=== PATIENT | female | born 1995 | race Caucasian/White ===

== ENCOUNTER → 2022-03-05 13:08 | Outpatient (CLI) | payer OTHER, SELFPAY ==
--- NOTE | ~2022-03-05 | MR_ITS ---
EXAMINATION: MR hip RT w con DATE: 03/05/2022 14:47 INDICATION: Right hip pain TECHNIQUE: Magnetic resonance (MR) arthrogram of the right hip was performed following intra-articula r gadolinium contrast injection and without intravenous contrast. Details of the hip joint injection have been dictated separately. Sequences included small field of view of the right hip with axial and sagittal T1-weighted FS SE and T2-weighted FS FSE and coronal T1-weighted SE and T2-weighted FS FSE . Additional T1-weighted FGRE images in a radial pattern oriented orthogonal to the acetabular rim we re obtained for evaluation of the labrum. COMPARISON: None. FINDINGS: Bones/labrum/cartilage: Alignment is normal. No fracture, avascular necrosis or pathologic marrow replacing process. Right a cetabular labrum is normal. Articular cartilage is normal. Fluid: Physiologic amount fluid in the left hip joint space. Small amount of likely physiologic free fluid i n the pelvis. No bursitis, abscess or other abnormal fluid collections. Soft tissues: Normal and symmetric muscle bulk and signal in the pelvis and visualized proximal thighs. The bilater al iliopsoas, gluteal and proximal hamstring tendons are normal. Tampon within the vaginal vault. Denis ited evaluation of visceral organs of the pelvis is unremarkable. No pathologically enlarged pelvic/ inguinal lymphadenopathy. IMPRESSION: 1. Normal right hip MRI arthrogram. Reviewed, dictated and finalized at location A.
--- NOTE | ~2022-03-05 | XR_ITS ---
EXAMINATION: XR fl inj hip RT for MR/CT DATE: 03/05/2022 14:01 INDICATION: Right hip pain. TECHNIQUE: A time-out was performed to verify the patient's name, date of , and procedure to b e performed. The procedure including the risks, benefits, and alternatives was discussed with the pat ient. Risks discussed included bleeding and infection. The patient understood the risks and agreed to proceed. The skin overlying the right hip joint was prepped and draped in usual sterile fashion. An esthetic was administered with 1% lidocaine subcutaneously. A 22 G needle was advanced under fluoros copic guidance into the joint. Subsequently, injectate consisting of 9 mL of 1:200 Multihance, 1:4 1 % lidocaine, and 1:4 Omnipaque 240 was instilled. The needle was removed and the entry site was checo halle and dressed. There were no immediate complications. Fluoroscopy exposure time was 0.0 minutes. T he total number of images was 3. FINDINGS: Real-time fluoroscopy demonstrates the needle and contrast in the right hip joint. IMPRESSION: 1. Successful right hip joint injection of contrast for subsequent MR arthrography. Reviewed, dictated and finalized at location B. IMPRESSION: 1. Successful right hip joint injection of contrast for subsequent MR arthrogr aphy.
== END ==
PROVIDERS: PCP Family Medicine; Visit Provider Orthopaedic Surgery
DX: M25.551 Pain in right hip (principal)
CPT/HCPCS: 20610; 73722; 77002; A9577; Q9966

== ENCOUNTER 2024-03-09 13:40 | Outpatient (CLI) | payer BC, SELFPAY ==
--- NOTE | ~2024-03-09 | CT_ITS ---
EXAMINATION: CT abdomen pelvis w con DATE: 03/09/2024 14:01 INDICATION: Left inguinal pain. TECHNIQUE: Computed tomography (CT) of the abdomen and pelvis was performed with 100 mL Omnipaque 350 intravenous contrast. Automated exposure control and iterative reconstruction technique were employe d. The dose-length product was 393.44 mGy-cm. COMPARISON: None. FINDINGS: The visualized portions of the lung bases are clear without pneumonia or pleural effusion. The heart size is normal. No pericardial effusion. The liver, gallbladder, spleen, pancreas, adrenal glands, and kidneys are normal. There are no dilated loops of bowel. The appendix is not visualized. There is physiologic fluid in the pelvis. There are no pathologically enlarged lymph nodes. There is mild lumbar spondylosis. IMPRESSION: 1. No etiology for the patient's symptoms. Reviewed, dictated and finalized at location A.
== END 2024-03-09 13:41 ==
LOC: MICIMG 13:42
PROVIDERS: PCP Family Medicine; Visit Provider Family Medicine
DX: R10.2 Pelvic and perineal pain (principal)
CPT/HCPCS: 74177; Q9967

== ENCOUNTER 2025-04-21 15:34 | Emergency (ER) | payer OTHER, SELFPAY ==
--- NOTE | ~2025-04-21 | US_ITS ---
EXAMINATION: US OB follow up DATE: 04/21/2025 16:50 INDICATION: Vaginal spotting during 14th week of TECHNIQUE: Real-time ultrasound of the pelvis was performed. The interpreting radiologist was not pre sent for the study. COMPARISON: None. FINDINGS: Of the uterus measures 14.6 x 9.3 x 9.4 cm. There is a single living fetus in variable presentation. The placenta is anterior with caudal margin approximately 2.6 cm from the internal cervical os. Norm al cervical length of 3 cm. There is a hypoechoic region without vascular flow on color Doppler along the inferior margin of the placenta and gestational sac which measures approximately 7 x 6 cm in ext ent and measuring up to 8 mm in maximal thickness where it extends across the internal cervical os day spicious for a subchorionic hematoma. heart rate is 158 beats per minute (bpm). The amniotic fl uid volume is subjectively normal with normal deepest vertical pocket is related to 4.2 cm. The following biometric data were obtained: Caban-rump length: 8.0 cm -> 14 weeks 0 days BPD: 2.7 cm -> 14 weeks 6 days Head circumference: 10.3 cm -> 14 weeks 6 days Abdominal circumference: 8.6 cm -> 14 weeks 6 days Femur length: 1.5 cm -> 14 weeks 4 days These measurements are concordant. Head circumference to abdominal circumference ratio: 1.21 (normal range 1.06-1.38). Estimated weight: 107 g (+/-) 16 g or 4 oz. (+/-) 1 oz. IMPRESSION: 1. Single living fetus in variable presentation with heart rate of 158 bpm. 2. Gestational age by ultrasound of 14 weeks 6 day(s) +/- 1 week(s) 0 day(s) with ultrasound estimate d date of delivery (LEONIE) of 10/14/2025. Estimated weight is 54th percentile by Hadlock criteria when 10/16/25 is used as the LEONIE. Please correlate with clinical information or earlier ultrasounds for most accurate LEONIE. 3. Subchorionic hematoma along the inferior margin of the placenta and gestational sac extending acro ss the internal cervical os. Reviewed, dictated and finalized at location B. IMPRESSION: 1. Single living fetus in variable presentation with heart rate of 158 bp m. 2. Gestational age by ultrasound of 14 weeks 6 day(s) +/- 1 week(s) 0 day(s) wi th ultrasound estimated date of delivery (LEONIE) of 10/14/2025. Estimated w eight is 54th percentile by Hadlock criteria when 10/16/25 is used as the LEONIE. Please correlate with clinical information or earlier ultrasounds for most accu rate LEONIE. 3. Subchorionic hematoma along the inferior margin of the placenta and gestatio nal sac extending across the internal cervical os.
[2025-04-21 15:35] VITALS: BP 123/65; PULSE 97; RESP 16; TEMP 36.8; O2SAT 99
[2025-04-21 16:54] LABS: Basophils Percent Auto 0.2 % (0.2-1.2); Eosinophils Absolute Auto 0.1 K/mm3 (0-0.3); Eosinophils Percent Auto 0.7 % (0-4.4); Hematocrit 39.3 % (37.0-47.0); Hemoglobin 13.5 g/dL (12.0-15.0); Immature Granulocyte Absolute 0.04 K/mm3 (0.00-0.031); Immature Granulocyte Percent A 0.3 % (0-0.5); Lymphocytes Absolute Auto 1.97 K/mm3 (0.9-3.2); Lymphocytes Percent Auto 16.3 % (18.3-44.2); Mean Corpuscular HGB Conc 34.4 g/dl (32-36); Mean Corpuscular Hemoglobin 32.7 pg (26-34); Mean Corpuscular Volume 95.2 fl (80-100); Mean Platelet Volume 9.7 fl (7.4-10.4); Monocytes Absolute Auto 0.7 K/mm3 (0.1-0.6); Monocytes Percent Auto 5.5 % (2.6-8.5); Neutrophils Absolute Auto 9.3 K/mm3 (1.3-6.7); Platelet Count Result 299 k/mm3 (150-375); Red Blood Count 4.13 M/mm3 (4.2-5.4); Red Cell Distribution Width 12.2 % (11.5-14.5); White Blood Count 12.1 K/mm3 (4.5-10.0)
[2025-04-21 17:00] LABS: Add Urine Microscopic? YES; Appearance Urine Clear (Clear); Bacteria Urine None Seen /hpf; Bilirubin Urine Negative (Negative); Blood Urine 1+ (Negative); Color Urine Yellow (Yellow); Glucose Urine UA Negative (Negative); Ketones Urine Negative (Negative); Leukocyte Esterase Ur Negative LEU/UL (Negative); Nitrate Urine Negative (Negative); Non Pathogenic Casts 0-2; Protein Urine Negative (Negative); RBC Urine 0-2 /hpf (0-2); Specific Grav Ur 1.006 (1.001-1.035); Squamous Epithelial Cell Urine None Seen /hpf (Few); Urobilinogen Urine 0.2 mg/dL (<2.0); WBC Urine 0-5 /hpf (0-3)
[2025-04-21 17:04] LABS: Alanine Aminotransferase 26 U/L (6-35); Albumin Level 4.5 g/dL (3.5-5.1); Alkaline Phosphatase 53 U/L (38-126); Anion Gap 11 mmol/L (4-12); Aspartate Amino Transferase 36 U/L (14-36); Bilirubin,Total 0.4 mg/dL (0.2-1.3); Blood Urea Nitrogen 10 mg/dL (7-17); Calcium 9.6 mg/dL (8.4-10.2); Carbon Dioxide 24 mmol/L (22-30); Chloride 101 mmol/L (98-107); Estimated CRCL calculation 99 ml/min; Estimated Glomerular Filt Rate > 60; Glucose 97 mg/dL (65-110); Potassium 3.2 mmol/L (3.4-5.0); Sodium 136 mmol/L (137-145)
[2025-04-21 17:07] LABS: INR 0.9; Prothrombin Time 12.4 Seconds (11.1-14.7)
[2025-04-21 17:08] LABS: Partial Thromboplastin Time 27.5 Seconds (22.3-36.8)
--- NOTE | 2025-04-21 17:10 | ED.PREGNANCY ---
HPI - General Chief complaint: Vaginal Bleeding Stated complaint: 14 weeks , having spotting Time Seen by Provider: 04/21/25 16:24 Source: patient Mode of arrival: ambulatory Limitations: no limitations History of Present Illness HPI Narrative: Patient is a 29-year-old female who presents the ED with report of vaginal spotting. Patient is and currently 14 weeks gestation. Reports this morning she had a small amount of brown vaginal spotting in her underwear. She placed a panty liner throughout the day and did not have any significant further bleeding, but did notice brown spotting with wiping 2 times this afternoon. Patient denies any previous issues with her . Has had confirmed IUP. Reports very mild, 1/10, cramping in her L lower abdomen. Denies dizziness, lightheadedness, nausea, vomiting, dysuria, hematuria. Blood type is A positive. Related Data Home Medications ?Medication ?Instructions ?Recorded ?Confirmed ?Last Taken ?Type No Home Medications 09/08/24 09/08/24 Unknown History Allergies Allergy/AdvReac Type Severity Reaction Status Date / Time Penicillins Allergy Mild Hives Verified 04/21/25 16:47 Review of Systems Review of Systems: All systems reviewed & are unremarkable except as noted in HPI. All systems reviewed & are unremarkable except as noted in HPI and below PMFSH Family History Family History Grandparent Lung cancer Diabetes mellitus Social History Social History Smoking status: Never smoker Alcohol intake: current Alcohol use details: socially Substance use: never Do You Feel Safe in your Home?: Yes Lack of Transportation: No Lack of Food: Never True Current Housing: I Have Housing Concerned About Future Housing: No Difficulty Paying Gas/Electric Bills: No Difficulty Paying for Meds: No Currently Unemployed: No Education: Master's Degree or Higher Difficulty w/ Childcare or Family Care: No Living arrangements: with family Occupation/Education: occupation Additional occupation/education comments: physical therapist Gender identity (if verbalized by the patient): Female Sexual Orientation (if Verbalized by the Patient): Straight or Heterosexual Exam Narrative: GENERAL: Well appearing, well-nourished, non-toxic, in no acute distress. HEAD: Normocephalic, atraumatic. RESPIRATORY: Airway patent, respirations nonlabored. Clear to auscultation bilaterally, no rales, rhonchi, wheezing. CARDIOVASCULAR: Regular rate and rhythm without murmurs, rubs, or gallops. ABDOMINAL: Soft, significant focal tenderness. Nondistended. Normoactive BS. MUSCULOSKELETAL: Moves all extremities. No gross deformities. SKIN: Warm, dry, normal color. NEURO: A&O X3. Speech clear. PSYCHIATRIC: Anxious, tearful. Normal interaction. Course Vital Signs Vital signs: Vital Signs Temperature 98.3 F 04/21/25 15:35 Pulse Rate 97 04/21/25 15:35 Respiratory Rate 16 04/21/25 15:35 Blood Pressure 123/65 04/21/25 15:35 Pulse Oximetry 99 04/21/25 15:35 Oxygen Delivery Room Air 04/21/25 15:35 Temperature 98.3 F 04/21/25 15:35 Pulse Rate 96 04/21/25 18:00 Respiratory Rate 18 04/21/25 18:00 Blood Pressure 107/50 L 04/21/25 18:00 Pulse Oximetry 100 04/21/25 18:00 Oxygen Delivery Room Air 04/21/25 15:35 MDM - OB/Uterine Contractions MDM Narrative Medical decision making narrative: Patient presented to ED with vaginal spotting, currently 14 weeks gestation. Reporting very mild cramping. Vital signs are stable upon arrival. No evidence of hemodynamic instability. H&H is stable. CMP with K 3.2, will replace. UA is clear. Blood type is A+. No indication for RhoGAM. Pelvic ultrasound obtained showing live IUP, good heart tones. Measuring 14 weeks 6 days. No records to compare to. Does show subchorionic hematoma along inferior margin the placenta gestational sac across internal cervical os. Consistent clinical picture. Updated patient on lab and imaging findings, need for close follow-up with OBGYN. Discussed pelvic rest until seen by OBGYN. Discussed strict return precautions. Patient in agreement plan. Feels very reassured by live IUP. Given return precautions. Discharged in stable condition. Medical Records Attestation: I reviewed the patient's medical records. Lab Data Attestation: I reviewed the patient's lab results. 04/21/25 16:49 04/21/25 16:49 Labs: Lab Results 04/21/25 04/21/25 Range/Units 16:41 16:49 WBC 12.1 H (4.5-10.0) K/mm3 RBC 4.13 L (4.2-5.4) M/mm3 Hgb 13.5 (12.0-15.0) g/dL Hct 39.3 (37.0-47.0) % MCV 95.2 (80-100) fl MCH 32.7 (26-34) pg MCHC 34.4 (32-36) g/dl RDW 12.2 (11.5-14.5) % Plt Count 299 (150-375) k/mm3 MPV 9.7 (7.4-10.4) fl Immature Gran % (Auto) 0.3 (0-0.5) % Neut % (Auto) 77.0 H (45.5-73.1) % Lymph % (Auto) 16.3 L (18.3-44.2) % Owen % (Auto) 5.5 (2.6-8.5) % Eos % (Auto) 0.7 (0-4.4) % Baso % (Auto) 0.2 (0.2-1.2) % Lymph # (Auto) 1.97 (0.9-3.2) K/mm3 Owen # (Auto) 0.7 H (0.1-0.6) K/mm3 Eos # (Auto) 0.1 (0-0.3) K/mm3 Baso # (Auto) 0.0 (0.0-0.1) K/mm3 Abs Immat Gran (auto) 0.04 H (0.00-0.031) K/mm3 Absolute Neuts (auto) 9.3 H (1.3-6.7) K/mm3 Absolute Nucleated RBC 0.000 (0.0-0.012) K/mm3 Nucleated RBC % 0.0 (0.0-0.2) % PT 12.4 (11.1-14.7) Seconds INR 0.9 APTT 27.5 (22.3-36.8) Seconds Sodium 136 L (137-145) mmol/L Potassium 3.2 L (3.4-5.0) mmol/L Chloride 101 (98-107) mmol/L Carbon Dioxide 24 (22-30) mmol/L Anion Gap 11 (4-12) mmol/L BUN 10 (7-17) mg/dL Creatinine 0.63 L (0.7-1.0) mg/dL Estim Creat Clear Calc 99 ml/min Estimated GFR > 60 (59 - ) Glucose 97 (65-110) mg/dL Calcium 9.6 (8.4-10.2) mg/dL Total Bilirubin 0.4 (0.2-1.3) mg/dL AST 36 (14-36) U/L ALT 26 (6-35) U/L Alkaline Phosphatase 53 (38-126) U/L Total Protein 8.0 (6.3-8.2) g/dL Albumin 4.5 (3.5-5.1) g/dL Beta HCG, Quant 99277.00 mIU/ML Urine Color Yellow (Yellow) Urine Appearance Clear (Clear) Urine pH 7.0 (5.0-9.0) Ur Specific Allons 1.006 (1.001-1.035) Urine Protein Negative (Negative) mg/dL Urine Glucose (UA) Negative (Negative) mg/dL Urine Ketones Negative (Negative) mg/dL Ur Blood (Man) 1+ H (Negative) Urine Nitrate Negative (Negative) Urine Bilirubin Negative (Negative) Urine Urobilinogen 0.2 (<2.0) mg/dL Leukocyte Esterase Rfl Negative (Negative) XIAO/UL Urine RBC 0-2 (0-2) /hpf Urine WBC 0-5 (0-3) /hpf Ur Squamous Epith Cells None seen (Few) /hpf Urine Bacteria None seen /hpf Urine Casts 0-2 Blood Type A Positive Antibody Screen Negative Screen Not Reportable Baby's Blood Type Not Reportable Baby's SARATH Not Reportable Doses of RhIg Required 0 Imaging Data Attestation: I personally reviewed and interpreted this imaging study as follows: Radiologist's impression: ITS Impressions Obstetrics Ultrasound 04/21/25 17:01 IMPRESSION: 1. Single living fetus in variable presentation with heart rate of 158 bpm. 2. Gestational age by ultrasound of 14 weeks 6 day(s) +/- 1 week(s) 0 day(s) with ultrasound estimated date of delivery (LEONIE) of 10/14/2025. Estimated weight is 54th percentile by Hadlock criteria when 10/16/25 is used as the LEONIE. Please correlate with clinical information or earlier ultrasounds for most accurate LEONIE. 3. Subchorionic hematoma along the inferior margin of the placenta and gestational sac extending across the internal cervical os. Discharge Plan Discharge Clinical Impression: 14 weeks gestation of Subchorionic hematoma Qualifiers: Fetus number: single or unspecified fetus Trimester: second trimester Qualified Code(s): O41.8X20 - Other specified disorders of amniotic fluid and membranes, second trimester, not applicable or unspecified Patient Disposition: Home Condition: Stable Instructions: Antibiotic Form, Subchorionic Hemorrhage (ED), at 15 to 18 Weeks (ED), at 11 to 14 Weeks (ED) Additional Instructions: Continue to monitor symptoms. Recommend pelvic rest until seen by OBGYN, no tampons, heavy lifting, intercourse. Follow-up closely with your primary care doctor for further evaluation and management. Return to the ED if you experience worsening or severe pain/bleeding, unable to keep down food or drink, severe dizziness or lightheadedness, or any other symptoms of concern. Patient Language: [place] Prescriptions: No Action No Home Medications Follow-up/Referrals: Kari,Sangeeta Butler MD [Primary Care Provider] - Time of Disposition: 17:36
[2025-04-21] MEDS: POTASSIUM CHLORIDE 20 MEQ ER TABLET 40 MEQ PO (17:52)
[2025-04-21 18:00] VITALS: BP 107/50; PULSE 96; RESP 18; O2SAT 100
== END 2025-04-21 18:27 | disposition home or self-care (01) ==
LOC: ANHED 17:42
PROVIDERS: Emergency Provider Physician Assistant; PCP Family Medicine
DX: O46.8X2 Other antepartum hemorrhage, second trimester (principal); Z3A.14 14 weeks gestation of pregnancy
CPT/HCPCS: 36415; 76816; 80053; 81001; 84702; 85025; 85461; 85610; 85730; 86850; 86900; 86901; 99284; A9270